=== PATIENT | male | born 1965 | race Caucasian/White ===

== ENCOUNTER 2019-07-02 13:12 | Emergency (ER) | payer SELFPAY ==
[2019-07-02 13:27] VITALS: BP 125/78
--- NOTE | 2019-07-02 13:31 | UC ---
Laceration HPI - HPI Summary HPI Summary: 54 yo male presents with thumb laceration. 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 Pt is here for eval. Last tetanus is within the last 5 years. - History Of Current Complaint Chief Complaint: UCLaceration Stated Complaint: CUT ON FINGER Time Seen by Provider: 07/02/19 13:31 Hx Obtained From: Patient Laceration Location: Finger Mechanism Of Injury: Sharp Trauma Onset/Duration: Sudden Onset Severity: Mild Pain Intensity: 4 Pain Scale Used: 0-10 Numeric - Allergies/Home Medications Allergies/Adverse Reactions: Allergies Allergy/AdvReac Type Severity Reaction Status Date / Time No Known Allergies Allergy Verified 07/02/19 13:27 Home Medications: Home Medications Amlodipine Besylate [Amlodipine 2.5 mg tab] 2.5 mg PO DAILY 07/02/19 [History Confirmed 07/02/19] Atorvastatin* [Lipitor*] 80 mg PO QPM 07/02/19 [History Confirmed 07/02/19] Dofetilide CAP* [Tikosyn CAP*] 500 mcg PO BID 07/02/19 [History Confirmed ] Famotidine 40 mg PO DAILY WITH MEAL 07/02/19 [History Confirmed 07/02/19] Metoprolol Succinate [Metoprolol Succinate ER] 25 mg PO DAILY WITH MEAL [History Confirmed 07/02/19] Pantoprazole Sodium [Protonix] 20 mg PO DAILY WITH MEAL 07/02/19 [History Confirmed 07/02/19] Propranolol TAB* [Inderal TAB*] 10 mg PO DAILY 07/02/19 [History Confirmed 07/02] Sucralfate [Carafate] 1 gm PO DAILY WITH MEAL 07/02/19 [History Confirmed ] Warfarin TAB(*) [Coumadin TAB(*)] 5 mg PO DAILY 07/02/19 [History Confirmed ] PMH/Surg Hx/FS Hx/Imm Hx Endocrine History: Dyslipidemia Cardiovascular History: Cardiac Disease, Hypertension GI/ History: Gastroesophageal Reflux - Surgical History Surgical History: Yes Surgery Procedure, Year, and Place: Cardiac stents - Family History Known Family History: Positive: Non-Contributory - Social History Occupation: Employed Full-time Lives: With Family Alcohol Use: None Substance Use Type: None Smoking Status (MU): Never Smoked Tobacco Review of Systems All Other Systems Reviewed And Are Negative: No Constitutional: Positive: Negative Skin: Positive: Other - left thumb laceration Respiratory: Positive: Negative Cardiovascular: Positive: Negative Musculoskeletal: Positive: Negative Neurological: Positive: Negative Psychological: Positive: Negative Physical Exam - Summary Physical Exam Summary: GENERAL: NAD. WDWN. No pain distress. SKIN: LEFT THUMB: pad with 1.4cm linear superficial laceration. Well approximated at rest. No bleeding. Clean appearing. CHEST: No accessory muscle use. Breathing comfortably and in no distress. CV: Pulses intact. Cap refill <2seconds NEURO: Alert. PSYCH: Age appropriate behavior. Triage Information Reviewed: Yes Vital Signs: Initial Vital Signs Temp 99.6 F 07/02/19 13:22 Pulse 61 07/02/19 13:22 Resp 18 07/02/19 13:22 BP 125/78 07/02/19 13:22 Pulse Ox 96 07/02/19 13:22 Vital Signs Reviewed: Yes Laceration Repair - Laceration Repair 1 Description: Linear Laceration Size After Repair: Length (cm) - 1.4 Modified For Repair: No Cleansing Completed Via Routine Prep: Yes Closure Material: Skin Adhesive Closure Method: Single Layer Suture Of: Skin Laceration Course/Dx - Course/Dx Course Of Treatment: Steri strips removed and laceration well approximated at rest without bleeding. Dermabond applied. New steri strips applied and dressed with tube gauze - Diagnosis Provider Diagnosis: Thumb laceration Discharge ED - Sign-Out/Discharge Documenting (check all that apply): Patient Departure All imaging exams completed and their final reports reviewed: No Studies - Discharge Plan Condition: Stable Disposition: HOME Patient Education Materials: Skin Adhesive Care (ED) Referrals: No Primary Care Phys,NOPCP [Primary Care Provider] - Additional Instructions: If you develop a fever, shortness of breath, chest pain, new or worsening symptoms - please call your PCP or go to the ED immediately. After 24 hours, apply a band-aid daily until well healed (likely 5-7 days) - Billing Disposition and Condition Condition: STABLE Disposition: Home
== END 2019-07-02 13:54 | disposition home or self-care (01) ==
LOC: UCEAST 13:12
DX: S61.012A Laceration without foreign body of left thumb without damage to nail, initial encounter (principal); I10 Essential (primary) hypertension; K21.9 Gastro-esophageal reflux disease without esophagitis; E78.5 Hyperlipidemia, unspecified; Z79.899 Other long term (current) drug therapy; W26.8XXA Contact with other sharp object(s), not elsewhere classified, initial encounter; Y92.9 Unspecified place or not applicable
CPT/HCPCS: 12001; 99201; G0463